=== PATIENT | male | born 1975 | race American Indian/Alaskan Native ===

== ENCOUNTER 2020-05-10 10:12 | Emergency (ER) | payer SELFPAY ==
[2020-05-10 10:18] VITALS: BP 141/103
--- NOTE | 2020-05-10 11:49 | Emergency Department Report ---
HPI - General Chief Complaint: Upper Respiratory Infection Time Seen by Provider: 05/10/20 11:45 - HPI HPI: This is a 44-year-old male who presents to the emergency department with a complaint of a 2 to 3-day history of a mixed dry and productive cough, increased mucus production, nausea, sinus headache and some diarrhea. He denies any fever, chest pain, shortness of breath, vomiting. Patient has tried some Mucinex and another [id number] flu medication without any relief. He has a past medical history of hypertension. He says he is currently being worked up for "respiratory issues." He denies any tobacco or illicit drug use. No recent travel or sick contacts at home. No known exposure to anyone with Covid 19. ED Past Medical Hx - Past Medical History Hx Hypertension: Yes Additional medical history: ETOH abuse - Surgical History Additional Surgical History: gallbladder - Social History Smoking Status: Never Smoker - Medications Home Medications: Home Medications Medication Instructions Recorded Confirmed Last Taken Type Omeprazole [PriLOSEC] 20 mg PO QDAY #30 capsule. 07/12/15 Unknown Rx hydroCHLOROthiazide [HCTZ] 25 mg PO QDAY #30 tablet 07/12/15 Unknown Rx Ibuprofen [Motrin] 800 mg PO Q8HR PRN #30 tablet 03/15/20 Unknown Rx Benzonatate [Tessalon Perles] 100 mg PO Q8HR PRN #20 capsule 05/10/20 Unknown Rx Fluticasone [Flonase] 1 spray NS QDAY #1 bottle 05/10/20 Unknown Rx Ondansetron [Zofran ODT TAB] 4 mg PO Q8HR #15 tab.rapdis 05/10/20 Unknown Rx ED Review of Systems ROS: Stated complaint: COLD Other details as noted in HPI Comment: All other systems reviewed and negative Constitutional: denies: chills, fever Eyes: denies: eye pain, vision change ENT: congestion. denies: ear pain, throat pain Respiratory: cough. denies: shortness of breath Cardiovascular: denies: chest pain, palpitations Gastrointestinal: diarrhea. denies: abdominal pain, vomiting Genitourinary: denies: dysuria, discharge Musculoskeletal: denies: back pain, joint swelling Skin: denies: rash, lesions Neurological: headache. denies: weakness Physical Exam - Physical Exam Vital Signs: Vital Signs 05/10/20 10:17 Temperature 98.6 F Pulse Rate 91 H Respiratory 18 Rate Blood Pressure 141/103 O2 Sat by Pulse 97 Oximetry Physical Exam: GENERAL: The patient is well-developed well-nourished. HENT: Normocephalic. Atraumatic. Patient has moist mucous membranes. EYES: Extraocular motions are intact. NECK: Supple. Trachea is midline. CHEST/LUNGS: Clear to auscultation. No cough heard during examination. There is no respiratory distress noted. HEART/CARDIOVASCULAR: Regular. There is no tachycardia. There is no murmur. ABDOMEN: Abdomen is soft, nontender. Patient has normal bowel sounds. SKIN: Skin is warm and dry. NEURO: The patient is awake, alert, and oriented. The patient is cooperative. Normal speech. MUSCULOSKELETAL: There is no tenderness or deformity. ED Course Vital Signs 05/10/20 10:17 Temperature 98.6 F Pulse Rate 91 H Respiratory 18 Rate Blood Pressure 141/103 O2 Sat by Pulse 97 Oximetry ED Medical Decision Making - Radiology Data Radiology results: image reviewed interpreted by me: Chest x-ray does not show any acute process. There are no pleural effusions, obvious pneumonia and there is no pneumothorax. No significant cardiomegaly. - Medical Decision Making This patient presents with some upper respiratory and viral symptoms that include intermittent headaches, diarrhea, mixed dry and productive cough. Vital signs have been unremarkable including being afebrile. Chest x-ray did not show any pneumonia, pleural effusions, focal consolidation, pneumothorax, or any other acute process. The patient will be placed on Tessalon Perles for cough, Flonase for what appears to be a sinus headache, and some Zofran for his nausea. He has been given referrals for outpatient primary care follow-up. He will return to the ER with any worsening of his symptoms or with any acute distress. Critical Care Time: No Critical care attestation.: If time is entered above; I have spent that time in minutes in the direct care of this critically ill patient, excluding procedure time. ED Disposition Clinical Impression: Viral syndrome Upper respiratory infection Qualifiers: URI type: unspecified URI Qualified Code(s): J06.9 - Acute upper respiratory infection, unspecified Disposition: - TO HOME OR SELFCARE Is pt being admited?: No Condition: Stable Instructions: Upper Respiratory Infection (ED), Viral Syndrome (ED) Additional Instructions: Please follow-up with a primary care physician in the next few days. Return to the emergency department with any worsening of your symptoms or with any acute distress. Prescriptions: Fluticasone [Flonase] 1 spray NS QDAY #1 bottle Benzonatate [Tessalon Perles] 100 mg PO Q8HR PRN #20 capsule PRN Reason: Cough Ondansetron [Zofran ODT TAB] 4 mg PO Q8HR #15 tab.rapdis Referrals: PINKY CONKLIN MD [Staff Physician] - 2-3 Days [facility] [Provider Group] - 2-3 Days Forms: Work/School Release Form(ED) Time of Disposition: 12:25
--- NOTE | 2020-05-10 12:21 | XRay Report ---
CHEST 2 VIEWS INDICATION: cough. COMPARISON: None FINDINGS: Support devices: None. Heart: Within normal limits. Lungs/pleura: No acute air space or interstitial disease. No pneumothorax. Additional findings: None. IMPRESSION: No acute findings. Signer Name: Dipak Bender Jr, MD Signed: 05/10/2020 12:17 PM Workstation Name: [id number]
== END 2020-05-10 12:42 | disposition home or self-care (01) ==
LOC: ED 10:12
DX: B34.9 Viral infection, unspecified (principal); J06.9 Acute upper respiratory infection, unspecified; I10 Essential (primary) hypertension; Z79.899 Other long term (current) drug therapy; Z88.6 Allergy status to analgesic agent; Z88.8 Allergy status to other drugs, medicaments and biological substances
CPT/HCPCS: 71046; 99283

== ENCOUNTER 2021-10-30 16:25 | Emergency (ER) | payer MEDICAID ==
--- NOTE | 2021-10-30 17:55 | XRay Report ---
XR hip 2-3V RT INDICATION / CLINICAL INFORMATION: pain. COMPARISON: None available. FINDINGS: No acute fracture. Normal alignment. Joint spaces are preserved. No destructive osseous lesion or s uspicious periosteal reaction. Impression: 1.No acute fracture. Signer Name: Rafat Loza MD Signed: 10/30/2021 5:51 PM Workstation Name: [id number]
--- NOTE | 2021-10-30 17:55 | XRay Report ---
XR chest routine 2V INDICATION / CLINICAL INFORMATION: chest pain COMPARISON: 05/10/2020 FINDINGS: SUPPORT DEVICES: None. HEART / MEDIASTINUM: No significant abnormality. LUNGS / PLEURA: Lungs are clear. Costophrenic sulci are sharp. No pneumothorax. ADDITIONAL FINDINGS: No significant additional findings. IMPRESSION: 1. No acute findings. Signer Name: Rafat Loza MD Signed: 10/30/2021 5:51 PM Workstation Name: [id number]
[2021-10-30 18:27] LABS: Bilirubin,Urine NEG (Negative); Blood,Urine NEG (Negative); Color,Urine Yellow (Yellow); Mucus,Urine FEW /HPF; Protein,Urine <15 mg/dL mg/dL (Negative)
[2021-10-30 18:28] LABS: RBC,Urine < 1.0 /HPF (0.0-6.0)
[2021-10-30 18:38] LABS: Hematocrit 36.9 % (35.5-45.6); Mean Corpuscular HGB Conc 35 % (32-34); Mean Corpuscular Volume 88 fl (84-94); Platelet Count 109 K/mm3 (140-440); Red Cell Distribution Width 13.3 % (13.2-15.2)
[2021-10-30] MEDS ORDERED: ONDANSETRON 4 MG ODT TAB PO ONE (19:01)
[2021-10-30] MEDS ORDERED: KETOROLAC 10 MG TAB PO ONE (19:01)
[2021-10-30 19:11] LABS: Alanine Aminotransferase 22 units/L (7-56); Albumin 4.1 g/dL (3.9-5); Blood Urea Nitrogen 8 mg/dL (9-20); Calcium 9.1 mg/dL (8.4-10.2); Hemolysis Index 13
[2021-10-30 19:18] LABS: BUN/Creatinine Ratio 16
--- NOTE | 2021-10-30 19:47 | Emergency Department Report ---
ED Chest Pain HPI - General Chief Complaint: Chest Pain Stated Complaint: CHEST PAIN/RT SIDE/LT ARM PAIN Time Seen by Provider: 10/30/21 17:14 Source: patient Mode of arrival: Ambulatory Limitations: No Limitations - History of Present Illness Initial Comments: 46-year-old black male with a past medical history of hypertension and diabetes presents to the emergency department for evaluation of left arm pain and chest pain that initially started yesterday along with right hip pain that has been intermittent for the last month. He states that yesterday his left arm started to feel heavy and tingly and then he started to have chest pain that resolved and then today about 40 minutes prior to arrival he started to have left chest pain once again. He denies shortness of breath, dizziness, nausea, vomiting, and diaphoresis. He states the pain at its worse is 5 out of 10 but pain is mostly resolved at this point. He describes the pain as just a funny feeling. He states that his major concern is right hip pain and burning that has been intermittent for the last 1 month. He denies injury and fever. MD Complaint: chest pain -: Gradual, hour(s) (1) Onset: during rest Pain Location: left chest Pain Radiation: LUE Severity: mild, moderate Severity scale (0 -10): 5 Quality: heaviness, pressure Consistency: intermittent Worsens With: nothing re: denies: nausea, vomting, diaphoresis, dyspnea, sense of impending doom Other Symptoms: denies: cough, fever, rash, acid taste in mouth, leg swelling, palpitations, burping Treatments Prior to Arrival: none Aspirin use within the Past 7 Days: (1) Yes - Related Data Previous Rx's Medication Instructions Recorded Last Taken Type Omeprazole [PriLOSEC] 20 mg PO QDAY #30 capsule. 07/12/15 Unknown Rx hydroCHLOROthiazide [HCTZ] 25 mg PO QDAY #30 tablet 07/12/15 Unknown Rx Ibuprofen [Motrin] 800 mg PO Q8HR PRN #30 tablet 03/15/20 Unknown Rx Benzonatate [Tessalon Perles] 100 mg PO Q8HR PRN #20 capsule 05/10/20 Unknown Rx Fluticasone [Flonase] 1 spray NS QDAY #1 bottle 05/10/20 Unknown Rx Ondansetron [Zofran ODT TAB] 4 mg PO Q8HR #15 tab.rapdis 05/10/20 Unknown Rx Acetaminophen/Codeine [Tylenol 1 tab PO Q6H PRN #12 tab 10/30/21 Unknown Rx /Codeine # 3 tab] Allergies Allergy/AdvReac Type Severity Reaction Status Date / Time acetaminophen [From Percocet] Allergy Nausea Verified 08/29/16 09:11 morphine Allergy Nausea Verified 08/29/16 09:11 oxycodone HCl [From Percocet] Allergy Nausea Verified 08/29/16 09:11 naproxen AdvReac Nausea Verified 11/20/14 11:32 Heart Score - HEART Score History: Moderately suspicious EKG: Normal Age: 45-65 Risk factors: 1-2 risk factors Troponin: < normal limit HEART Score: 3 - EKG Read Time Time EKG Completed: 16:48 EKG Read Time: 16:50 - Critical Actions Critical Actions: 0-3 pts:0.9-1.7%risk of adverse cardiac event.Candidate for discharge ED Review of Systems ROS: Stated complaint: CHEST PAIN/RT SIDE/LT ARM PAIN Other details as noted in HPI Comment: All other systems reviewed and negative Constitutional: denies: chills, diaphoresis, fever, malaise Eyes: denies: eye pain ENT: denies: ear pain Respiratory: denies: cough, shortness of breath, SOB with exertion, SOB at rest Cardiovascular: chest pain. denies: palpitations, dyspnea on exertion, orthopnea, syncope, paroxysmal nocturnal dyspnea Endocrine: no symptoms reported Gastrointestinal: denies: abdominal pain, nausea, vomiting, diarrhea, hematemesis, hematochezia Genitourinary: denies: urgency, dysuria, frequency Skin: denies: rash, lesions Neurological: denies: headache, weakness, numbness, paresthesias, confusion, abnormal gait Psychiatric: denies: anxiety, depression Hematological/Lymphatic: denies: easy bleeding, easy bruising ED Past Medical Hx - Past Medical History Hx Hypertension: Yes Additional medical history: ETOH abuse - Surgical History Additional Surgical History: gallbladder - Social History Smoking Status: Never Smoker - Medications Home Medications: Home Medications Medication Instructions Recorded Confirmed Last Taken Type Omeprazole [PriLOSEC] 20 mg PO QDAY #30 capsule. 07/12/15 Unknown Rx hydroCHLOROthiazide [HCTZ] 25 mg PO QDAY #30 tablet 07/12/15 Unknown Rx Ibuprofen [Motrin] 800 mg PO Q8HR PRN #30 tablet 03/15/20 Unknown Rx Benzonatate [Tessalon Perles] 100 mg PO Q8HR PRN #20 capsule 05/10/20 Unknown Rx Fluticasone [Flonase] 1 spray NS QDAY #1 bottle 05/10/20 Unknown Rx Ondansetron [Zofran ODT TAB] 4 mg PO Q8HR #15 tab.rapdis 05/10/20 Unknown Rx Acetaminophen/Codeine [Tylenol 1 tab PO Q6H PRN #12 tab 10/30/21 Unknown Rx /Codeine # 3 tab] ED Physical Exam - General Limitations: No Limitations General appearance: alert, in no apparent distress - Head Head exam: Present: atraumatic, normocephalic - Eye Eye exam: Present: normal appearance. Absent: conjunctival injection - Neck Neck exam: Present: normal inspection. Absent: tenderness, lymphadenopathy - Respiratory Respiratory exam: Present: normal lung sounds bilaterally. Absent: respiratory distress, wheezes, rales, rhonchi, stridor, chest wall tenderness, accessory muscle use - Cardiovascular Cardiovascular Exam: Present: regular rate, normal rhythm, normal heart sounds - GI/Abdominal GI/Abdominal exam: Present: soft, normal bowel sounds. Absent: rebound, rigid - Extremities Exam Extremities exam: Present: normal inspection - Expanded Lower Extremity Exam Right Hip exam: Present: normal inspection, full ROM, tenderness. Absent: swelling, abrasion, laceration, ecchymosis, dislocation, erythema, shortening - Back Exam Back exam: Present: normal inspection, tenderness (Right lower). Absent: CVA tenderness (R), CVA tenderness (L) - Neurological Exam Neurological exam: Present: alert, oriented X3 - Psychiatric Psychiatric exam: Present: normal affect - Skin Skin exam: Present: warm, dry, intact, normal color ED Course Vital Signs 10/30/21 10/30/21 16:43 19:53 Temperature 98.5 F Pulse Rate 75 66 Respiratory 20 14 Rate Blood Pressure 157/105 Blood Pressure 152/101 [Right] O2 Sat by Pulse 99 100 Oximetry - Reevaluation(s) Reevaluation #1: 10/30/21 19:43 Patient states that chest pain and left arm numbness have resolved. He still complains of right hip pain. ED Medical Decision Making - Lab Data Result diagrams: 10/30/21 17:33 10/30/21 17:33 - EKG Data Interpretation: no acute changes, normal EKG 10/30/21 22:35 No acute ischemic changes noted - Radiology Data Radiology results: report reviewed, image reviewed Chest x-ray IMPRESSION: 1. No acute findings. Right hip x-ray FINDINGS: No acute fracture. Normal alignment. Joint spaces are preserved. No destructive osseous lesion or suspicious periosteal reaction. Impression: 1.No acute fracture. - Medical Decision Making 46-year-old black male with a past medical history of hypertension and diabetes presents to the emergency department for evaluation of left arm pain and chest pain that initially started yesterday along with right hip pain that has been intermittent for the last month. He states that yesterday his left arm started to feel heavy and tingly and then he started to have chest pain that resolved and then today about 40 minutes prior to arrival he started to have left chest pain once again. He denies shortness of breath, dizziness, nausea, vomiting, and diaphoresis. He states the pain at its worse is 5 out of 10 but pain is mostly resolved at this point. He describes the pain as just a funny feeling. He states that his major concern is right hip pain and burning that has been intermittent for the last 1 month. He denies injury and fever. Chest pain resolved and right hip pain slightly improved. EKG without any acute ischemic changes. Troponin within normal limits. No gross abnormalities on CBC CMP or UA. Patient will be treated with 7-day course of anti-inflammatories for right hip pain and advised to follow-up with cardiology for further evaluation of chest pain. He verbalized understanding of and agreement with plan of care. Critical care attestation.: If time is entered above; I have spent that time in minutes in the direct care of this critically ill patient, excluding procedure time. ED Disposition Clinical Impression: Hip pain, right Chest pain Qualifiers: Chest pain type: unspecified Qualified Code(s): R07.9 - Chest pain, unspecified Disposition: 01 HOME / SELF CARE / HOMELESS Is pt being admited?: No Does the pt Need Aspirin: No Condition: Stable Instructions: How to Use Cold Therapy, [id number], Nonspecific Chest Pain, Adult, [id number], Joint Pain, [id number] Additional Instructions: Take medications as prescribed. Follow-up with primary care provider. Follow- up with cardiology for further evaluation of chest pain. Return to the emergency department for concerning symptoms. Prescriptions: Acetaminophen/Codeine [Tylenol /Codeine # 3 tab] 1 tab PO Q6H PRN #12 tab PRN Reason: Pain, Moderate (4-6) Referrals: HELLEN PATHAK MD [Staff Physician] - 3-5 Days PING CHILD MD [Referring] - 3-5 Days Time of Disposition: 19:47 ED Lower Extremity HPI - General Chief Complaint: Chest Pain Stated Complaint: CHEST PAIN/RT SIDE/LT ARM PAIN Time Seen by Provider: 10/30/21 17:14 Source: patient Mode of arrival: Ambulatory Limitations: No Limitations - History of Present Illness Complaint: other (Right hip pain) -: Gradual, month(s) (1) Injury: Hip: Right Type of Injury: other Place: home, work Severity: moderate Severity scale (0 -10): 8 Other Symptoms: chest pain Associated Symptoms: ambulatory. denies: swelling, numbness, tingling, unable to bear weight - Related Data Previous Rx's Medication Instructions Recorded Last Taken Type Omeprazole [PriLOSEC] 20 mg PO QDAY #30 capsule. 07/12/15 Unknown Rx hydroCHLOROthiazide [HCTZ] 25 mg PO QDAY #30 tablet 07/12/15 Unknown Rx Ibuprofen [Motrin] 800 mg PO Q8HR PRN #30 tablet 03/15/20 Unknown Rx Benzonatate [Tessalon Perles] 100 mg PO Q8HR PRN #20 capsule 05/10/20 Unknown Rx Fluticasone [Flonase] 1 spray NS QDAY #1 bottle 05/10/20 Unknown Rx Ondansetron [Zofran ODT TAB] 4 mg PO Q8HR #15 tab.rapdis 05/10/20 Unknown Rx Acetaminophen/Codeine [Tylenol 1 tab PO Q6H PRN #12 tab 10/30/21 Unknown Rx /Codeine # 3 tab] Allergies Allergy/AdvReac Type Severity Reaction Status Date / Time acetaminophen [From Percocet] Allergy Nausea Verified 08/29/16 09:11 morphine Allergy Nausea Verified 08/29/16 09:11 oxycodone HCl [From Percocet] Allergy Nausea Verified 08/29/16 09:11 naproxen AdvReac Nausea Verified 11/20/14 11:32
[2021-10-30 19:54] VITALS: BP 152/101
--- NOTE | 2021-11-02 13:05 | Electrocardiograph Report ---
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
== END 2021-10-30 19:53 | disposition home or self-care (01) ==
LOC: ED 16:25
DX: I10 Essential (primary) hypertension (principal); Z88.5 Allergy status to narcotic agent
CPT/HCPCS: 36415; 71046; 80053; 81001; 84484; 85027; 93005; 93010; 99284; J3490; Q0162